=== PATIENT | female | born 1965 | race African-American/Black ===

== ENCOUNTER 2018-01-04 13:55 | Emergency (ER) | payer MEDICAID ==
[~2018-01-04] VITALS: Ht 157.5 cm; Wt 39.0 kg
[2018-01-04 15:29] LABS: Alanine Aminotransferase 17 U/L (13-56); Albumin 3.5 g/dL (3.4-5.0); Anion Gap 8 (5-15); Aspartate Aminotransferase 54 U/L (15-37); BUN/Creatinine Ratio 23.6; Basophils # (auto) 0.1 uL; Blood Urea Nitrogen 13 mg/dL (7-18); Carbon Dioxide 22 mmol/L (21-32); Chloride 109 mmol/L (98-107); Eosinophils # (auto) 0.2 uL; GFR African American 149 mL/min; GFR Non-African American 123 mL/min; Glucose 62 mg/dL (74-106); Hemoglobin 9.7 g/dL (12.2-16.2); Lymphocytes # (auto) 1.2 uL; Monocytes # (auto) 0.4 uL; Neutrophils # (auto) 3.6 uL; Red Cell Distribution Width 17.5 % (11.8-14.3); Sodium 139 mmol/L (136-145); White Blood Cell 5.5 10^3/uL (4.4-10.8)
[2018-01-04] MEDS ORDERED: ONDANSETRON HCL 4 MG/2 ML VIAL IV ONE (15:30)
[2018-01-04] MEDS ORDERED: SODIUM CHLORIDE 0.9% 500 ML IV ONE (15:30)
[2018-01-04] MEDS ORDERED: MORPHINE SULFATE 4 MG/ML SYR/VIAL IV ONE (15:30)
[2018-01-04 15:31] LABS: Basophils % (auto) 1.7 % (0.0-2.0); Eosinophils % (auto) 3.4 % (0.0-7.0); Hematocrit 29.5 % (36.0-46.0); Lymphocytes % (auto) 21.9 % (10.0-50.0); Mean Corpuscular Hgb Conc. 32.8 g/dL (32.0-36.0); Mean Corpuscular Volume 88.4 fL (80.0-100.0); Monocytes % (auto) 7.6 % (0.0-12.0); Neutrophils % (auto) 65.4 % (37.0-80.0); Nucleated Red Blood Cells % 0.3 %; Platelet Count (auto) 551 10^3/uL (140-450); Red Blood Cells 3.34 10^6/uL (4.0-5.20)
[2018-01-04 15:33] LABS: Alkaline Phosphatase 97 U/L (45-117); Bilirubin, Total 0.5 mg/dL (0.2-1.0); Total Protein 8.7 g/dL (6.4-8.2)
[2018-01-04] MEDS: KETOROLAC TROMETH 30 MG/ML 1ML VIAL IV ONE ×2 (15:47→16:02)
[2018-01-04 16:07] VITALS: BP 138/91
== END 2018-01-04 16:53 | disposition home or self-care (01) ==
LOC: ER 13:55
DX: M54.5 Low back pain (principal); D53.9 Nutritional anemia, unspecified; M79.605 Pain in left leg
CPT/HCPCS: 36415; 71045; 80053; 84484; 85025; 93005; 94761; 96374; 99284; J2270; J1885; J2405